=== PATIENT | female | born 1980 | race Caucasian/White ===

== ENCOUNTER 2020-05-03 12:15 | Emergency (ER) | payer MEDICAID ==
[~2020-05-03] VITALS: Ht 154.9 cm; Wt 90.9 kg
--- NOTE | 2020-05-03 13:01 | NUR ---
KIKO WARD AT BEDSIDE.
[2020-05-03 13:43] LABS: BASOPHILS % (AUTO) 0.3 % (0-1); EOSINOPHILS % (AUTO) 0.5 % (0-6); HEMATOCRIT 42.8 % (35.0-45.0); HEMOGLOBIN 14.7 g/dl (12.0-16.0); LYMPHOCYTES # (AUTO) 1.2 X10'3 (1.1-4.8); LYMPHOCYTES % (AUTO) 18.7 % (21-51); MEAN CORPUSCULAR HEMOGLOBIN 30.8 PG (27.0-31.0); MEAN CORPUSCULAR HGB CONC 34.4 g/dL (33.0-36.5); MEAN CORPUSCULAR VOLUME 89.6 FL (78-98); MEAN PLATELET VOLUME 7.1 FL (7.4-10.4); MONOCYTES # (AUTO) 0.4 X10'3 (0-0.9); MONOCYTES % (AUTO) 6.2 % (2-12); NEUTROPHILS # (AUTO) 4.8 X10'3 (1.8-7.7); NEUTROPHILS % (AUTO) 74.3 % (42-75); PLATELET COUNT 218 X10'3 (140-440); RED BLOOD COUNT 4.77 X10'6 (4.20-5.60); RED CELL DISTRIBUTION WIDTH 12.6 % (11.5-14.5); WHITE BLOOD COUNT 6.5 X10'3 (4.5-11.0)
[2020-05-03 13:54] LABS: ALANINE AMINOTRANSFERASE 74 U/L (12-78); ALBUMIN 3.9 G/DL (3.4-5.0); ALBUMIN/GLOBULIN RATIO 1.1 (1.1-1.5); ALKALINE PHOSPHATASE 64 IU/L (46-116); ANION GAP 8 (8-16); ASPARTATE AMINO TRANSFERASE 37 U/L (10-37); BILIRUBIN,TOTAL 0.3 MG/DL (0.1-1.0); BLOOD UREA NITROGEN 10 MG/DL (7-18); BUN/CREATININE RATIO 13.2 (6.6-38.0); CALCIUM 9.6 MG/DL (8.5-10.1); CHLORIDE 105 MMOL/L (99-107); CREATININE 0.76 MG/DL (0.40-0.90); GLUCOSE 98 MG/DL (70-104); POTASSIUM 3.4 MMOL/L (3.5-5.1); SODIUM 143 MMOL/L (135-145); TOTAL CARBON DIOXIDE 30.1 MMOL/L (24-32); TOTAL PROTEIN 7.5 G/DL (6.4-8.2); eGFR 84 ML/MIN
[2020-05-03] MEDS ORDERED: ketorolac tromethamine 15mg/ml inj. IM ONE (14:00)
[2020-05-03 14:06] LABS: CLARITY,URINE CLEAR (Clear); COLOR,URINE STRAW (Yellow); GLUCOSE, URINE NEGATIVE (Neg); KETONES,URINE NEGATIVE (Neg); LEUKOCYTE ESTERASE ,URINE NEGATIVE (Neg); NITRITES, URINE NEGATIVE (Neg); OCCULT BLOOD,URINE NEGATIVE (Neg); PROTEIN,URINE NEGATIVE (Neg); UROBILINOGEN,URINE 0.2 E.U/dL (0.2-1.0)
[2020-05-03 14:08] LABS: UA COLLECTION TYPE CLN CATCH MIDSTREAM
[2020-05-03 14:44] VITALS: BP 140/82
== END 2020-05-03 14:45 | disposition home or self-care (01) ==
LOC: ER 12:17
DX: R51 Headache (principal); R11.2 Nausea with vomiting, unspecified; R53.1 Weakness; K59.00 Constipation, unspecified; I10 Essential (primary) hypertension
CPT/HCPCS: 36415; 70450; 80053; 81003; 84484; 85025; 93005; 96372; 99285; J1885

== ENCOUNTER 2020-06-22 18:11 | Emergency (ER) | payer MEDICAID ==
[~2020-06-22] VITALS: Ht 154.9 cm; Wt 98.2 kg
[2020-06-22] MEDS ORDERED: normal saline 1000ML IV soln IVB ONE (18:40)
[2020-06-22 19:00] LABS: CLARITY,URINE CLEAR (Clear); COLOR,URINE YELLOW (Yellow); GLUCOSE, URINE NEGATIVE (Neg); KETONES,URINE NEGATIVE (Neg); LEUKOCYTE ESTERASE ,URINE NEGATIVE (Neg); NITRITES, URINE NEGATIVE (Neg); OCCULT BLOOD,URINE SMALL (Neg); PROTEIN,URINE NEGATIVE (Neg); URINE HCG NEGATIVE (NEG); UROBILINOGEN,URINE 0.2 E.U/dL (0.2-1.0)
[2020-06-22 19:01] LABS: BASOPHILS % (AUTO) 0.4 % (0-1); EOSINOPHILS % (AUTO) 0.1 % (0-6); HEMATOCRIT 42.2 % (35.0-45.0); HEMOGLOBIN 14.7 g/dl (12.0-16.0); LYMPHOCYTES # (AUTO) 1.1 X10'3 (1.1-4.8); LYMPHOCYTES % (AUTO) 10.3 % (21-51); MEAN CORPUSCULAR HEMOGLOBIN 31.5 PG (27.0-31.0); MEAN CORPUSCULAR HGB CONC 34.9 g/dL (33.0-36.5); MEAN CORPUSCULAR VOLUME 90.3 FL (78-98); MEAN PLATELET VOLUME 7.8 FL (7.4-10.4); MONOCYTES # (AUTO) 0.3 X10'3 (0-0.9); MONOCYTES % (AUTO) 3.1 % (2-12); NEUTROPHILS # (AUTO) 9.3 X10'3 (1.8-7.7); NEUTROPHILS % (AUTO) 86.1 % (42-75); PLATELET COUNT 261 X10'3 (140-440); RED BLOOD COUNT 4.67 X10'6 (4.20-5.60); RED CELL DISTRIBUTION WIDTH 13.1 % (11.5-14.5); WHITE BLOOD COUNT 10.8 X10'3 (4.5-11.0)
[2020-06-22 19:04] LABS: UA COLLECTION TYPE CLN CATCH MIDSTREAM
[2020-06-22 19:07] LABS: BACTERIA,URINE NONE SEEN /HPF (Neg); MUCUS STRANDS NONE SEEN /LPF (Neg); RBC,URINE 0-2 /HPF (0-2); SQUAMOUS EPITHELIAL CELL,UR FEW /LPF (FEW); WBC,URINE NONE SEEN /HPF (0-4)
[2020-06-22 19:14] LABS: ANION GAP 10 (8-16); BLOOD UREA NITROGEN 13 MG/DL (7-18); BUN/CREATININE RATIO 13.7 (6.6-38.0); CHLORIDE 103 MMOL/L (99-107); CREATININE 0.95 MG/DL (0.40-0.90); GLUCOSE 108 MG/DL (70-104); POTASSIUM 3.4 MMOL/L (3.5-5.1); SODIUM 141 MMOL/L (135-145); TOTAL CARBON DIOXIDE 27.8 MMOL/L (24-32)
[2020-06-22 19:15] LABS: ALANINE AMINOTRANSFERASE 24 U/L (12-78); ALBUMIN/GLOBULIN RATIO 1.1 (1.1-1.5); ALKALINE PHOSPHATASE 60 IU/L (46-116); ASPARTATE AMINO TRANSFERASE 21 U/L (10-37); BILIRUBIN,TOTAL 0.3 MG/DL (0.1-1.0); CALCIUM 9.4 MG/DL (8.5-10.1); MAGNESIUM 2.1 MG/DL (1.5-2.4); PHOSPHORUS 3.1 MG/DL (2.3-4.5); TOTAL PROTEIN 7.6 G/DL (6.4-8.2); eGFR 65 ML/MIN
[2020-06-22] MEDS ORDERED: cloNIDine 0.1 mg tablet PO ONE (19:20)
[2020-06-22] MEDS ORDERED: ketorolac trometh. 30mg/ml inj. IV ONE (19:25)
[2020-06-22] MEDS ORDERED: LORazepam 2 mg/ml vial IV ONE (19:30)
[2020-06-22] MEDS ORDERED: ONDA4TAB6 PO (20:22)
[2020-06-22 20:33] VITALS: BP 141/89
== END 2020-06-22 20:34 | disposition home or self-care (01) ==
LOC: ER 18:11
DX: E86.0 Dehydration (principal); R11.2 Nausea with vomiting, unspecified; R51 Headache; I10 Essential (primary) hypertension; F41.9 Anxiety disorder, unspecified; F12.90 Cannabis use, unspecified, uncomplicated; Z72.89 Other problems related to lifestyle; Z79.899 Other long term (current) drug therapy
CPT/HCPCS: 36415; 80053; 81001; 81025; 83735; 84100; 85025; 96361; 96374; 96375; 99284; J1885; J2060; J7030

== ENCOUNTER 2020-06-23 14:36 | Emergency (ER) | payer MEDICAID ==
[~2020-06-23] VITALS: Ht 154.9 cm; Wt 98.1 kg
[~2020-06-23 14:36] MED LIST: ONDA4TAB6 PO
[2020-06-23] MEDS ORDERED: ketorolac trometh. 30mg/ml inj. IV ONE (15:25)
[2020-06-23] MEDS ORDERED: pantoprazole 40 MG vial IV ONE (15:25)
[2020-06-23] MEDS ORDERED: ondansetron/PF 4mg/2ml inj IV ONE (15:25)
[2020-06-23] MEDS ORDERED: famotidine/PF 10 mg/ml inj IV ONE (15:25)
[2020-06-23] MEDS ORDERED: proCHLORperazine 10 MG/2 ml inj IV ONE (15:25)
[2020-06-23] MEDS ORDERED: normal saline 1000ml 1,000 ML IV ONE (15:25)
[2020-06-23 16:30] VITALS: BP 129/79
== END 2020-06-23 16:32 | disposition home or self-care (01) ==
LOC: ER 14:36
DX: K29.00 Acute gastritis without bleeding (principal); I10 Essential (primary) hypertension; F41.9 Anxiety disorder, unspecified; F12.90 Cannabis use, unspecified, uncomplicated; Z72.89 Other problems related to lifestyle; Z79.899 Other long term (current) drug therapy
CPT/HCPCS: 96374; 96375; 99284; C9113; J0780; J1885; J2405; J3490; J7030

== ENCOUNTER 2020-07-14 11:33 | Emergency (ER) | payer MEDICAID ==
[~2020-07-14] VITALS: Ht 154.9 cm; Wt 92.1 kg
[2020-07-14 11:45] VITALS: BP 143/93
[2020-07-14 13:48] LABS: BASOPHILS % (AUTO) 0.3 % (0-1); EOSINOPHILS % (AUTO) 0.3 % (0-6); HEMATOCRIT 44.2 % (35.0-45.0); HEMOGLOBIN 15.3 g/dl (12.0-16.0); LYMPHOCYTES # (AUTO) 1.3 X10'3 (1.1-4.8); LYMPHOCYTES % (AUTO) 13.7 % (21-51); MEAN CORPUSCULAR HGB CONC 34.6 g/dL (33.0-36.5); MEAN CORPUSCULAR VOLUME 89.6 FL (78-98); MEAN PLATELET VOLUME 7.7 FL (7.4-10.4); MONOCYTES # (AUTO) 0.5 X10'3 (0-0.9); MONOCYTES % (AUTO) 5.5 % (2-12); NEUTROPHILS # (AUTO) 7.3 X10'3 (1.8-7.7); NEUTROPHILS % (AUTO) 80.2 % (42-75); PLATELET COUNT 254 X10'3 (140-440); RED BLOOD COUNT 4.93 X10'6 (4.20-5.60); RED CELL DISTRIBUTION WIDTH 12.8 % (11.5-14.5); WHITE BLOOD COUNT 9.2 X10'3 (4.5-11.0)
[2020-07-14 13:56] LABS: ALANINE AMINOTRANSFERASE 43 U/L (12-78); ALBUMIN 4.4 G/DL (3.4-5.0); ALBUMIN/GLOBULIN RATIO 1.2 (1.1-1.5); ALKALINE PHOSPHATASE 69 IU/L (46-116); ANION GAP 10 (8-16); ASPARTATE AMINO TRANSFERASE 18 U/L (10-37); BILIRUBIN,TOTAL 0.4 MG/DL (0.1-1.0); BLOOD UREA NITROGEN 11 MG/DL (7-18); BUN/CREATININE RATIO 14.3 (6.6-38.0); CALCIUM 9.3 MG/DL (8.5-10.1); CHLORIDE 101 MMOL/L (99-107); CREATININE 0.77 MG/DL (0.40-0.90); GLUCOSE 89 MG/DL (70-104); POTASSIUM 3.6 MMOL/L (3.5-5.1); SODIUM 141 MMOL/L (135-145); TOTAL CARBON DIOXIDE 29.7 MMOL/L (24-32); eGFR 83 ML/MIN
[2020-07-14] MEDS ORDERED: PROP10TA10 PO (14:14)
--- NOTE | 2020-07-14 14:20 | NUR ---
Patient seen and assessed by provider.
== END 2020-07-14 14:31 | disposition home or self-care (01) ==
LOC: ER 11:33
DX: R00.0 Tachycardia, unspecified (principal); R11.2 Nausea with vomiting, unspecified; I10 Essential (primary) hypertension; F41.9 Anxiety disorder, unspecified; F12.90 Cannabis use, unspecified, uncomplicated; Z72.89 Other problems related to lifestyle; Z79.899 Other long term (current) drug therapy
CPT/HCPCS: 36415; 80053; 85025; 93005; 99284

== ENCOUNTER 2020-07-17 08:59 | Emergency (ER) | payer MEDICAID ==
[~2020-07-17] VITALS: Ht 157.5 cm; Wt 90.5 kg
[~2020-07-17 08:59] MED LIST changes: +PROP10TA10 PO
[2020-07-17] MEDS ORDERED: pantoprazole 40mg Tablet.DR PO SCH (09:35)
[2020-07-17] MEDS ORDERED: pantoprazole 40mg Tablet.DR PO ONE (09:35)
[2020-07-17 09:55] LABS: BASOPHILS % (AUTO) 0.2 % (0-1); EOSINOPHILS % (AUTO) 0.3 % (0-6); HEMATOCRIT 44.3 % (35.0-45.0); LYMPHOCYTES # (AUTO) 1.1 X10'3 (1.1-4.8); LYMPHOCYTES % (AUTO) 14.7 % (21-51); MEAN CORPUSCULAR HEMOGLOBIN 30.6 PG (27.0-31.0); MEAN PLATELET VOLUME 7.9 FL (7.4-10.4); MONOCYTES # (AUTO) 0.3 X10'3 (0-0.9); MONOCYTES % (AUTO) 4.4 % (2-12); NEUTROPHILS # (AUTO) 6.1 X10'3 (1.8-7.7); NEUTROPHILS % (AUTO) 80.4 % (42-75); PLATELET COUNT 245 X10'3 (140-440); RED BLOOD COUNT 4.92 X10'6 (4.20-5.60); RED CELL DISTRIBUTION WIDTH 12.9 % (11.5-14.5); WHITE BLOOD COUNT 7.5 X10'3 (4.5-11.0)
[2020-07-17 10:10] LABS: ALANINE AMINOTRANSFERASE 30 U/L (12-78); ALBUMIN 4.2 G/DL (3.4-5.0); ALBUMIN/GLOBULIN RATIO 1.2 (1.1-1.5); ALKALINE PHOSPHATASE 69 IU/L (46-116); ANION GAP 11 (8-16); ASPARTATE AMINO TRANSFERASE 16 U/L (10-37); BILIRUBIN,TOTAL 0.4 MG/DL (0.1-1.0); BLOOD UREA NITROGEN 8 MG/DL (7-18); BUN/CREATININE RATIO 11.3 (6.6-38.0); CALCIUM 10.2 MG/DL (8.5-10.1); CHLORIDE 107 MMOL/L (99-107); CREATININE 0.71 MG/DL (0.40-0.90); GLUCOSE 100 MG/DL (70-104); POTASSIUM 3.5 MMOL/L (3.5-5.1); SODIUM 143 MMOL/L (135-145); TOTAL CARBON DIOXIDE 25.3 MMOL/L (24-32); TOTAL PROTEIN 7.8 G/DL (6.4-8.2); eGFR > 90 ML/MIN
[2020-07-17] MEDS ORDERED: PANT-47 PO (11:31)
[2020-07-17 12:08] VITALS: BP 133/87
== END 2020-07-17 12:17 | disposition home or self-care (01) ==
LOC: ER 09:00
DX: R00.2 Palpitations (principal); R11.2 Nausea with vomiting, unspecified; F41.9 Anxiety disorder, unspecified; R10.13 Epigastric pain; R51.9 Headache, unspecified; R06.02 Shortness of breath; R42 Dizziness and giddiness; I10 Essential (primary) hypertension; F12.90 Cannabis use, unspecified, uncomplicated; Z72.89 Other problems related to lifestyle; Z88.8 Allergy status to other drugs, medicaments and biological substances; Z79.899 Other long term (current) drug therapy
CPT/HCPCS: 36415; 71045; 80053; 83880; 84484; 85025; 93005; 99285

== ENCOUNTER 2021-04-09 17:47 | Emergency (ER) | payer MEDICAID ==
[~2021-04-09] VITALS: Ht 157.5 cm; Wt 93.0 kg
[~2021-04-09 17:47] MED LIST changes: +PANT-47 PO; -PROP10TA10 PO
[2021-04-09] MEDS ORDERED: LORazepam 2 mg/ml vial IM ONE (19:15)
[2021-04-09] MEDS ORDERED: CYCL-1 PO (20:31)
[2021-04-09] MEDS ORDERED: ketorolac trometh. 30mg/ml inj. IM ONE (20:45)
[2021-04-09] MEDS ORDERED: acetaminophen 325mg tablet PO ONE (20:45)
[2021-04-09] MEDS ORDERED: ketorolac tromethamine 15mg/ml inj. IM ONE (20:45)
[2021-04-09 21:02] VITALS: BP 145/99
== END 2021-04-09 20:58 | disposition home or self-care (01) ==
LOC: ER 17:49
DX: M62.838 Other muscle spasm (principal); R51.9 Headache, unspecified; R42 Dizziness and giddiness; M54.2 Cervicalgia; F41.9 Anxiety disorder, unspecified; I10 Essential (primary) hypertension; F12.90 Cannabis use, unspecified, uncomplicated; Z72.89 Other problems related to lifestyle; Z88.8 Allergy status to other drugs, medicaments and biological substances; Z79.899 Other long term (current) drug therapy
CPT/HCPCS: 93005; 96372; 99284; J1885; J2060

== ENCOUNTER 2021-09-06 09:27 | Emergency (ER) | payer MEDICAID ==
[~2021-09-06] VITALS: Ht 157.5 cm; Wt 97.3 kg
[~2021-09-06 09:27] MED LIST changes: +CYCL-1 PO
[2021-09-06] MEDS ORDERED: iohexol 300mg/ml 100ml inj. ONE (09:58)
[2021-09-06] MEDS ORDERED: ondansetron/PF 4mg/2ml inj IV ONE (12:05)
[2021-09-06] MEDS ORDERED: diazepam inj 5 MG/ML inj. IV ONE (12:05)
[2021-09-06] MEDS ORDERED: fentaNYL/PF 50MCG/1 ML 2ML syringe IV ONE (12:05)
[2021-09-06] MEDS ORDERED: DIAZ-351 PO (12:09)
[2021-09-06] MEDS ORDERED: PRED20TA PO (12:09)
[2021-09-06] MEDS ORDERED: METH-797 PO (12:09)
[2021-09-06 12:42] VITALS: BP 142/72
== END 2021-09-06 12:43 | disposition home or self-care (01) ==
LOC: ER 09:27
DX: S06.0X0A Concussion without loss of consciousness, initial encounter (principal); S30.0XXA Contusion of lower back and pelvis, initial encounter; S39.012A Strain of muscle, fascia and tendon of lower back, initial encounter; S16.1XXA Strain of muscle, fascia and tendon at neck level, initial encounter; S80.12XA Contusion of left lower leg, initial encounter; M54.42 Lumbago with sciatica, left side; F41.9 Anxiety disorder, unspecified; I10 Essential (primary) hypertension; F12.10 Cannabis abuse, uncomplicated; Z88.5 Allergy status to narcotic agent; Z79.899 Other long term (current) drug therapy; V87.7XXA Person injured in collision between other specified motor vehicles (traffic), initial encounter; Y93.89 Activity, other specified; Y92.89 Other specified places as the place of occurrence of the external cause; Y99.8 Other external cause status
CPT/HCPCS: 29505; 71260; 73564; 73590; 74177; 96374; 96375; 99285; J2405; J3010; J3360; Q9967

== ENCOUNTER 2022-08-07 21:29 | Emergency (ER) | payer MEDICAID ==
[~2022-08-07] VITALS: Ht 157.5 cm; Wt 99.5 kg
[~2022-08-07 21:29] MED LIST changes: +DIAZ-351 PO; +METH-797 PO
[2022-08-07 22:07] LABS: URINE HCG NEGATIVE (NEG)
[2022-08-07 22:13] LABS: CLARITY,URINE CLOUDY (Clear); GLUCOSE, URINE NEGATIVE (Neg); KETONES,URINE TRACE mg/dl (Neg); LEUKOCYTE ESTERASE ,URINE MODERATE (Neg); NITRITES, URINE NEGATIVE (Neg); OCCULT BLOOD,URINE LARGE (Neg); PROTEIN,URINE 30 mg/dl (Neg); UROBILINOGEN,URINE 0.2 E.U/dL (0.2-1.0)
[2022-08-07 22:16] LABS: COLOR,URINE AMBER (Yellow); UA COLLECTION TYPE CLN CATCH MIDSTREAM
[2022-08-07 22:20] LABS: RBC,URINE TNTC /HPF (0-2); WBC,URINE 50-100 /HPF (0-4)
[2022-08-07 22:21] LABS: BACTERIA,URINE 3+ /HPF (Neg); MUCUS STRANDS MODERATE /LPF (Neg); SQUAMOUS EPITHELIAL CELL,UR MODERATE /LPF (FEW); WBC CLUMPS,URINE MODERATE /HPF (NEGATIVE)
[2022-08-07] MEDS ORDERED: phenazopyridine 100mg tablet PO ONE (22:25)
[2022-08-07] MEDS ORDERED: ciprofloxacin 250mg tablet PO ONE (22:25)
[2022-08-07] MEDS ORDERED: CIPR-259 PO (22:26)
[2022-08-07] MEDS ORDERED: PHEN-824 PO (22:26)
[2022-08-07 22:47] VITALS: BP 131/81
== END 2022-08-07 22:52 | disposition home or self-care (01) ==
LOC: ER 21:30
DX: N39.0 Urinary tract infection, site not specified (principal); I10 Essential (primary) hypertension; F12.90 Cannabis use, unspecified, uncomplicated; Z88.8 Allergy status to other drugs, medicaments and biological substances
CPT/HCPCS: 81001; 81025; 87077; 87088; 87186; 99283

== ENCOUNTER 2022-12-05 14:24 | Emergency (ER) | payer MEDICAID ==
[~2022-12-05] VITALS: Ht 157.5 cm; Wt 102.7 kg
[~2022-12-05 14:24] MED LIST changes: +PHEN-824 PO
[2022-12-05 14:39] VITALS: BP 125/82
[2022-12-05 16:44] LABS: BASOPHILS % (AUTO) 0.5 % (0-1); EOSINOPHILS # (AUTO) 0.1 X10'3 (0-0.9); EOSINOPHILS % (AUTO) 0.6 % (0-6); HEMATOCRIT 42.8 % (35.0-45.0); HEMOGLOBIN 14.5 g/dl (12.0-16.0); LYMPHOCYTES # (AUTO) 1.8 X10'3 (1.1-4.8); LYMPHOCYTES % (AUTO) 19.4 % (21-51); MEAN CORPUSCULAR HEMOGLOBIN 30.2 PG (27.0-31.0); MEAN CORPUSCULAR HGB CONC 33.9 g/dL (33.0-36.5); MEAN CORPUSCULAR VOLUME 89.1 FL (78-98); MEAN PLATELET VOLUME 7.7 FL (7.4-10.4); MONOCYTES # (AUTO) 0.3 X10'3 (0-0.9); MONOCYTES % (AUTO) 3.7 % (2-12); NEUTROPHILS # (AUTO) 7.2 X10'3 (1.8-7.7); NEUTROPHILS % (AUTO) 75.8 % (42-75); PLATELET COUNT 276 X10'3 (140-440); RED CELL DISTRIBUTION WIDTH 13.4 % (11.5-14.5); WHITE BLOOD COUNT 9.4 X10'3 (4.5-11.0)
[2022-12-05 16:47] LABS: CLARITY,URINE CLOUDY (Clear); COLOR,URINE YELLOW (Yellow); GLUCOSE, URINE NEGATIVE (Neg); KETONES,URINE TRACE mg/dl (Neg); LEUKOCYTE ESTERASE ,URINE NEGATIVE (Neg); NITRITES, URINE NEGATIVE (Neg); OCCULT BLOOD,URINE TRACE-INTACT (Neg); PROTEIN,URINE NEGATIVE (Neg); UROBILINOGEN,URINE 0.2 E.U/dL (0.2-1.0)
[2022-12-05 16:48] LABS: URINE HCG NEGATIVE (NEG)
[2022-12-05 16:58] LABS: ALANINE AMINOTRANSFERASE 19 U/L (12-78); ALBUMIN 3.8 G/DL (3.4-5.0); ALKALINE PHOSPHATASE 58 IU/L (46-116); ANION GAP 9 (8-16); ASPARTATE AMINO TRANSFERASE 24 U/L (10-37); BILIRUBIN,TOTAL 0.3 MG/DL (0.1-1.0); BLOOD UREA NITROGEN 9 MG/DL (7-18); BUN/CREATININE RATIO 12.2 (6.6-38.0); CHLORIDE 103 MMOL/L (99-107); CREATININE 0.74 MG/DL (0.40-0.90); GLUCOSE 88 MG/DL (70-104); LIPASE 79 U/L (73-393); POTASSIUM 3.8 MMOL/L (3.5-5.1); SODIUM 140 MMOL/L (135-145); TOTAL CARBON DIOXIDE 27.8 MMOL/L (24-32); TOTAL PROTEIN 7.7 G/DL (6.4-8.2); eGFR 86 ML/MIN
[2022-12-05 16:58] LABS: UA COLLECTION TYPE CLN CATCH MIDSTREAM
[2022-12-05 17:02] LABS: BACTERIA,URINE FEW /HPF (Neg); MUCUS STRANDS MODERATE /LPF (Neg); RBC,URINE 0-2 /HPF (0-2); SQUAMOUS EPITHELIAL CELL,UR MANY /LPF (FEW); WBC,URINE 0-4 /HPF (0-4)
[2022-12-05] MEDS ORDERED: ibuprofen tablet 400 MG TABLET PO ONE (18:40)
[2022-12-05] MEDS ORDERED: IBUP-1986 PO (18:43)
== END 2022-12-05 18:56 | disposition home or self-care (01) ==
LOC: ER 14:25
DX: K65.9 Peritonitis, unspecified (principal); I10 Essential (primary) hypertension; F41.9 Anxiety disorder, unspecified; Z88.5 Allergy status to narcotic agent; Z79.899 Other long term (current) drug therapy
CPT/HCPCS: 36415; 74176; 76700; 80053; 81001; 81025; 83690; 85025; 99284